=== PATIENT | male | born 1990 | race American Indian/Alaskan Native ===

== ENCOUNTER 2020-02-11 18:35 | Emergency (ER) | payer MEDICARE ==
--- NOTE | 2020-02-11 19:38 | Emergency Department Report ---
Blank Doc - Documentation Documentation: 29-year-old male that presents with for medical clearance. As per caregiver, patient has been very aggrasive and has missed 2 doses of clozapine. This initial assessment/diagnostic orders/clinical plan/treatment(s) is/are subject to change based on patient's health status, clinical progression and re- assessment by fellow clinical providers in the ED. Further treatment and workup at subsequent clinical providers discretion. Patient/guardians urged not to elope from the ED as their condition may be serious if not clinically assessed and managed. Initial orders include: 1- Patient sent to [facility] for further evaluation and treatment 2- labs 3- UA
[2020-02-11 19:40] VITALS: BP 135/79
[2020-02-11 20:35] LABS: Basophils % (Auto) 0.3 % (0.0-1.8); Eosinophils # (Auto) 0.1 K/mm3 (0.0-0.4); Eosinophils % (Auto) 1.1 % (0.0-4.3); Hematocrit 44.5 % (35.5-45.6); Hemoglobin 15.6 gm/dl (11.8-15.2); Lymphocytes # (Auto) 2.4 K/mm3 (1.2-5.4); Mean Corpuscular HGB Conc 35 % (32-34); Mean Corpuscular Volume 87 fl (84-94); Monocytes # (Auto) 0.8 K/mm3 (0.0-0.8); Monocytes % (Auto) 12.8 % (0.0-7.3); Platelet Count 196 K/mm3 (140-440); Red Blood Count 5.14 M/mm3 (3.65-5.03); Red Cell Distribution Width 13.4 % (13.2-15.2)
[2020-02-11 20:38] LABS: BUN/Creatinine Ratio 14; Blood Urea Nitrogen 17 mg/dL (9-20); Calcium 9.8 mg/dL (8.4-10.2); Hemolysis Index 10
[2020-02-11 20:51] LABS: Bacteria,Urine 1+ /HPF (Negative); Bilirubin,Urine NEG (Negative); Blood,Urine NEG (Negative); Color,Urine Yellow (Yellow); Mucus,Urine FEW /HPF; Protein,Urine <15 mg/dL mg/dL (Negative); Urobilinogen,Urine < 2.0 mg/dL (<2.0); WBC,Urine < 1.0 /HPF (0.0-6.0)
[2020-02-11 21:24] LABS: Amphetamine Screen,Urine PRESUMPTIVE NEGATIVE; Benzodiazepines Screen,Urine PRESUMPTIVE NEGATIVE; Cannabinoid Screen,Urine PRESUMPTIVE NEGATIVE; Cocaine Screen,Urine PRESUMPTIVE NEGATIVE; Methadone Screen,Urine PRESUMPTIVE NEGATIVE; Opiate Screen,Urine PRESUMPTIVE NEGATIVE
--- NOTE | 2020-02-11 21:51 | Emergency Department Report ---
ED Psych HPI - General Chief Complaint: Medical Clearance Stated Complaint: MH Time Seen by Provider: 02/11/20 19:35 Source: patient Mode of arrival: Ambulatory Limitations: No Limitations - History of Present Illness Initial Comments: Mr. Can has a history of bipolar disorder, anxiety who presents with request via caregiver for medication refill of clozapine 200 mg twice daily. Patient was unable to have routine lab draw, consequently his prescription refill had been delayed. Caregiver has arranged for medication to arrive within the next few days. Without clozapine, patient can be aggressive. He is currently calm without any thoughts of harming himself or others. He has been in a new snf since July. He denies any physical complaints. He has been without 2 days of clozapine dosing. He recently received his other medications. Caregiver explained that it is protocol for patient to be evaluated his medication regimen has been disrupted -: days(s) Associated Psychiatric Symptoms: other (Aggressive behavior) History of same: Yes Quality: intermittent Improves With: medication Worsens With: none Context: not taking psychiatric Associated Symptoms: denies other symptoms Treatments Prior to Arrival: none - Related Data Home Medications Medication Instructions Recorded Confirmed Last Taken cloZAPine 200 mg PO BID 02/11/20 02/11/20 Unknown Previous Rx's Medication Instructions Recorded Last Taken Type cloZAPine 200 mg PO BID 5 Days #10 tab 02/11/20 Unknown Rx Allergies Allergy/AdvReac Type Severity Reaction Status Date / Time haloperidol [From Haldol] AdvReac Unknown Verified 02/11/20 19:40 ED Review of Systems ROS: Stated complaint: MH Other details as noted in HPI Comment: All other systems reviewed and negative Constitutional: denies: fever, malaise Respiratory: denies: cough, shortness of breath Cardiovascular: denies: chest pain Gastrointestinal: denies: abdominal pain, nausea, vomiting Psychiatric: denies: auditory hallucinations, suicidal thoughts ED Past Medical Hx - Past Medical History Previous Medical History?: Yes Hx Psychiatric Treatment: Yes (Bi polar, anxiety) - Surgical History Past Surgical History?: No - Social History Smoking Status: Never Smoker Substance Use Type: None - Medications Home Medications: Home Medications Medication Instructions Recorded Confirmed Last Taken Type cloZAPine 200 mg PO BID 02/11/20 02/11/20 Unknown History cloZAPine 200 mg PO BID 5 Days #10 tab 02/11/20 Unknown Rx ED Physical Exam - General Limitations: No Limitations General appearance: alert, in no apparent distress, other (Calm cooperative) - Head Head exam: Present: atraumatic, normocephalic - Eye Eye exam: Present: normal appearance - ENT ENT exam: Present: mucous membranes moist - Neck Neck exam: Present: normal inspection, full ROM - Respiratory Respiratory exam: Present: normal lung sounds bilaterally. Absent: respiratory distress, wheezes, rales, rhonchi - Cardiovascular Cardiovascular Exam: Present: regular rate, normal rhythm, normal heart sounds. Absent: systolic murmur, diastolic murmur, rubs, gallop - GI/Abdominal GI/Abdominal exam: Present: soft, normal bowel sounds. Absent: distended, tenderness - Rectal Rectal exam: Present: deferred - Extremities Exam Extremities exam: Present: normal inspection - Back Exam Back exam: Present: normal inspection - Neurological Exam Neurological exam: Present: alert, oriented X3 - Psychiatric Psychiatric exam: Present: normal mood, flat affect - Skin Skin exam: Present: warm, dry, intact, normal color. Absent: rash ED Course Vital Signs 02/11/20 19:36 Temperature 99.1 F Pulse Rate 92 H Respiratory 18 Rate Blood Pressure 135/79 O2 Sat by Pulse 97 Oximetry ED Medical Decision Making - Lab Data Result diagrams: 02/11/20 19:47 02/11/20 19:47 Laboratory Results - last 24 hr 02/11/20 02/11/20 02/11/20 19:47 19:47 19:47 WBC 6.5 RBC 5.14 H Hgb 15.6 H Hct 44.5 MCV 87 MCH 30 MCHC 35 H RDW 13.4 Plt Count 196 Lymph % (Auto) 37.0 H Casey % (Auto) 12.8 H Eos % (Auto) 1.1 Baso % (Auto) 0.3 Lymph # 2.4 Casey # 0.8 Eos # 0.1 Baso # 0.0 Seg Neutrophils % 48.8 Seg Neutrophils # 3.2 Sodium 141 Potassium 4.2 Chloride 100.2 Carbon Dioxide 28 Anion Gap 17 BUN 17 Creatinine 1.2 Estimated GFR > 60 BUN/Creatinine Ratio 14 Glucose 87 Calcium 9.8 Urine Color Urine Turbidity Urine pH Ur Specific [place] Urine Protein Urine Glucose (UA) Urine Ketones Urine Blood Urine Nitrite Urine Bilirubin Urine Urobilinogen Ur Leukocyte Esterase Urine WBC (Auto) Urine RBC (Auto) Urine Bacteria (Auto) Urine Mucus Salicylates < 0.3 L Urine Opiates Screen Urine Methadone Screen Acetaminophen Ur Barbiturates Screen Ur Phencyclidine Scrn Ur Amphetamines Screen U Benzodiazepines Scrn Urine Cocaine Screen U Marijuana (THC) Screen Drugs of Abuse Note Plasma/Serum Alcohol 02/11/20 02/11/20 02/11/20 19:47 19:47 Unknown WBC RBC Hgb Hct MCV MCH MCHC RDW Plt Count Lymph % (Auto) Casey % (Auto) Eos % (Auto) Baso % (Auto) Lymph # Casey # Eos # Baso # Seg Neutrophils % Seg Neutrophils # Sodium Potassium Chloride Carbon Dioxide Anion Gap BUN Creatinine Estimated GFR BUN/Creatinine Ratio Glucose Calcium Urine Color Yellow Urine Turbidity Clear Urine pH 5.0 Ur Specific [place] 1.027 Urine Protein <15 mg/dl Urine Glucose (UA) Neg Urine Ketones Neg Urine Blood Neg Urine Nitrite Neg Urine Bilirubin Neg Urine Urobilinogen < 2.0 Ur Leukocyte Esterase Neg Urine WBC (Auto) < 1.0 Urine RBC (Auto) 2.0 Urine Bacteria (Auto) 1+ Urine Mucus Few Salicylates Urine Opiates Screen Urine Methadone Screen Acetaminophen 5.0 L Ur Barbiturates Screen Ur Phencyclidine Scrn Ur Amphetamines Screen U Benzodiazepines Scrn Urine Cocaine Screen U Marijuana (THC) Screen Drugs of Abuse Note Plasma/Serum Alcohol < 0.01 02/11/20 Unknown WBC RBC Hgb Hct MCV MCH MCHC RDW Plt Count Lymph % (Auto) Casey % (Auto) Eos % (Auto) Baso % (Auto) Lymph # Casey # Eos # Baso # Seg Neutrophils % Seg Neutrophils # Sodium Potassium Chloride Carbon Dioxide Anion Gap BUN Creatinine Estimated GFR BUN/Creatinine Ratio Glucose Calcium Urine Color Urine Turbidity Urine pH Ur Specific [place] Urine Protein Urine Glucose (UA) Urine Ketones Urine Blood Urine Nitrite Urine Bilirubin Urine Urobilinogen Ur Leukocyte Esterase Urine WBC (Auto) Urine RBC (Auto) Urine Bacteria (Auto) Urine Mucus Salicylates Urine Opiates Screen Presumptive negative Urine Methadone Screen Presumptive negative Acetaminophen Ur Barbiturates Screen Presumptive negative Ur Phencyclidine Scrn Presumptive negative Ur Amphetamines Screen Presumptive negative U Benzodiazepines Scrn Presumptive negative Urine Cocaine Screen Presumptive negative U Marijuana (THC) Screen Presumptive negative Drugs of Abuse Note Disclamer Plasma/Serum Alcohol - Medical Decision Making Mr. Can appears calm and cooperative. He is not aggressive here in the emergency department. I did prescribe 10 doses of clozapine for the next 5 days. CBC chemistry serum toxicology urinalysis urine tox screen all within normal limits Critical care attestation.: If time is entered above; I have spent that time in minutes in the direct care of this critically ill patient, excluding procedure time. ED Disposition Clinical Impression: Medication refill Disposition: DC-01 TO HOME OR SELFCARE Is pt being admited?: No Does the pt Need Aspirin: No Condition: Stable Prescriptions: cloZAPine 200 mg PO BID 5 Days #10 tab
== END 2020-02-11 22:10 | disposition home or self-care (01) ==
LOC: ED 18:35
DX: R45.6 Violent behavior (principal); Z76.0 Encounter for issue of repeat prescription; F31.9 Bipolar disorder, unspecified; F41.9 Anxiety disorder, unspecified; Z79.899 Other long term (current) drug therapy; Z88.8 Allergy status to other drugs, medicaments and biological substances
CPT/HCPCS: 36415; 80048; 80307; 80320; 81001; 85025; G0480

== ENCOUNTER 2020-04-22 17:02 | Emergency (ER) | payer MEDICARE ==
[2020-04-22 17:34] VITALS: BP 118/64
--- NOTE | 2020-04-22 17:36 | Emergency Department Report ---
ED General Adult HPI - General Chief complaint: Medical Clearance Stated complaint: RX REFILL Time Seen by Provider: 04/22/20 17:32 Source: family Mode of arrival: Ambulatory Limitations: No Limitations - History of Present Illness Initial comments: 29-year-old male patient presents with his caregiver for refill of his clonidine today. [facility] and his medications are typically shipped however he did not receive his clonidine. Caregiver states that his last dose of clonidine was yesterday. He denies any other complaints or concerns. - Related Data Home Medications Medication Instructions Recorded Confirmed Last Taken cloZAPine 200 mg PO BID 02/11/20 02/11/20 Unknown Previous Rx's Medication Instructions Recorded Last Taken Type cloZAPine 200 mg PO BID 5 Days #10 tab 02/11/20 Unknown Rx cloNIDine [Catapres] 0.1 mg PO QHS #30 tablet 04/22/20 Unknown Rx Allergies Allergy/AdvReac Type Severity Reaction Status Date / Time haloperidol [From Haldol] AdvReac Unknown Verified 02/11/20 19:40 ED Review of Systems ROS: Stated complaint: RX REFILL Other details as noted in HPI Constitutional: denies: fever, malaise Respiratory: denies: shortness of breath Cardiovascular: denies: chest pain Gastrointestinal: denies: abdominal pain ED Past Medical Hx - Past Medical History Previous Medical History?: Yes Hx Psychiatric Treatment: Yes (Bi polar, anxiety) - Social History Smoking Status: Never Smoker Substance Use Type: None - Medications Home Medications: Home Medications Medication Instructions Recorded Confirmed Last Taken Type cloZAPine 200 mg PO BID 02/11/20 02/11/20 Unknown History cloZAPine 200 mg PO BID 5 Days #10 tab 02/11/20 Unknown Rx cloNIDine [Catapres] 0.1 mg PO QHS #30 tablet 04/22/20 Unknown Rx ED Physical Exam - General Limitations: No Limitations General appearance: alert, in no apparent distress - Head Head exam: Present: atraumatic, normocephalic - Eye Eye exam: Absent: scleral icterus - Respiratory Respiratory exam: Absent: respiratory distress - Cardiovascular Cardiovascular Exam: Present: regular rate - Neurological Exam Neurological exam: Present: alert, oriented X3 - Psychiatric Psychiatric exam: Present: normal affect, normal mood - Skin Skin exam: Present: warm, dry, intact, normal color. Absent: rash, cyanosis, ecchymosis ED Medical Decision Making - Medical Decision Making 29-year-old male patient presents with his caregiver for refill of his clonidine today. Patient lives [facility] a [facility] and his medications are typically shipped however he did not receive his clonidine. Caregiver states that his last dose of clonidine was yesterday. He denies any other complaints or concerns. Medication refill given. Patient to follow-up with his primary care provider for further refills. His vitals are normal, he is well-appearing, he is stable for discharge home. Critical care attestation.: If time is entered above; I have spent that time in minutes in the direct care of this critically ill patient, excluding procedure time. ED Disposition Clinical Impression: Encounter for medication refill Disposition: DC-01 TO HOME OR SELFCARE Is pt being admited?: No Condition: Stable Prescriptions: cloNIDine [Catapres] 0.1 mg PO QHS #30 tablet Referrals: PRIMARY CARE, [Referring] - 3-5 Days
== END 2020-04-22 19:25 | disposition home or self-care (01) ==
LOC: ED 17:02
DX: F41.9 Anxiety disorder, unspecified (principal); F31.9 Bipolar disorder, unspecified; Z76.0 Encounter for issue of repeat prescription; Z79.899 Other long term (current) drug therapy; Z88.8 Allergy status to other drugs, medicaments and biological substances
CPT/HCPCS: 99282

== ENCOUNTER 2021-03-05 15:33 | Emergency (ER) | payer MEDICARE ==
--- NOTE | 2021-03-05 15:39 | Emergency Department Report ---
ED General Adult HPI - General Stated complaint: BEHAVIORAL DISORDER Time Seen by Provider: 03/05/21 15:39 - History of Present Illness Initial comments: Patient was sent in from the shelter because of a behavior disorder. This was not a psychiatric issue. Patient became agitated and angry. He was punching the wall. He states that somebody said something to him and he should have let go. He did not. He is not suicidal or homicidal. He states that he feels better now. He states that he is just hungry. He reported to EMS that he did not want to go back to the shelter. He was aware that that may not be possible today. At this time, he is not responding to extraneous stimuli. He is not hearing voices. He is not angry or agitated. - Related Data Home Medications Medication Instructions Recorded Confirmed Last Taken cloZAPine 200 mg PO BID 02/11/20 02/11/20 Unknown Previous Rx's Medication Instructions Recorded Last Taken Type cloZAPine 200 mg PO BID 5 Days #10 tab 02/11/20 Unknown Rx cloNIDine [Catapres] 0.1 mg PO QHS #30 tablet 04/22/20 Unknown Rx Allergies Allergy/AdvReac Type Severity Reaction Status Date / Time haloperidol [From Haldol] AdvReac Unknown Verified 02/11/20 19:40 ED Review of Systems ROS: Stated complaint: BEHAVIORAL DISORDER Other details as noted in HPI Comment: All other systems reviewed and negative Constitutional: denies: fever Eyes: denies: eye pain ENT: denies: throat pain Respiratory: denies: cough Cardiovascular: denies: chest pain Endocrine: denies: unexplained weight loss Gastrointestinal: denies: abdominal pain Genitourinary: denies: dysuria Musculoskeletal: denies: back pain Skin: denies: rash Neurological: denies: headache Psychiatric: denies: auditory hallucinations, visual hallucinations, homicidal thoughts, suicidal thoughts Hematological/Lymphatic: denies: easy bruising ED Past Medical Hx - Past Medical History Hx Psychiatric Treatment: Yes (Bi polar, anxiety) - Family History Family history: no significant - Social History Smoking Status: Never Smoker Substance Use Type: None - Medications Home Medications: Home Medications Medication Instructions Recorded Confirmed Last Taken Type cloZAPine 200 mg PO BID 02/11/20 02/11/20 Unknown History cloZAPine 200 mg PO BID 5 Days #10 tab 02/11/20 Unknown Rx cloNIDine [Catapres] 0.1 mg PO QHS #30 tablet 04/22/20 Unknown Rx ED Physical Exam - General Limitations: No Limitations, Other (Pulse ox is noted. Patient is not hypoxic.) General appearance: alert, in no apparent distress - Head Head exam: Present: atraumatic, normocephalic, normal inspection - Eye Eye exam: Present: normal appearance, EOMI. Absent: scleral icterus - ENT ENT exam: Present: normal exam, normal external ear exam - Neck Neck exam: Present: normal inspection. Absent: meningismus - Respiratory Respiratory exam: Present: normal lung sounds bilaterally. Absent: respiratory distress - Cardiovascular Cardiovascular Exam: Present: regular rate, normal rhythm - GI/Abdominal GI/Abdominal exam: Present: soft. Absent: tenderness - Extremities Exam Extremities exam: Present: normal capillary refill - Back Exam Back exam: Present: full ROM - Neurological Exam Neurological exam: Present: alert, oriented X3, normal gait. Absent: motor sensory deficit - Psychiatric Psychiatric exam: Present: normal affect, normal mood - Skin Skin exam: Present: warm, dry ED Course Vital Signs 03/05/21 03/05/21 03/05/21 17:10 19:47 19:53 Temperature 98.1 F 98.0 F Pulse Rate 94 H 97 H Respiratory 16 16 16 Rate Blood Pressure 112/75 Blood Pressure 111/71 [Left] O2 Sat by Pulse 98 100 98 Oximetry 03/06/21 02:39 Temperature 97.6 F Pulse Rate 101 H Respiratory 18 Rate Blood Pressure Blood Pressure 115/71 [Left] O2 Sat by Pulse 100 Oximetry - Reevaluation(s) Reevaluation #1: 03/05/21 15:39 Patient was seen upon EMS arrival. Old records reviewed. Reevaluation #2: 03/05/21 17:36 Despite the fact that the patient was medically cleared and discharged for a behavior issue, the shelter is refusing to take the patient back because he has not been seen by social worker delinquency prevention. They believe that this is a psychiatric issue and the patient requires a 3-day hospitalization. I have had conversat ions with the director and the staff member present. I have informed him that this is not a psychiatric issue, that this is a behavioral issue. They state that they will not take him back until he has been seen by the social worker delinquency prevention. This will be facilitated and the patient will subsequently be discharged. They refused to listen to my medical judgment about his psychiatric versus behavioral state. Reevaluation #3: 03/05/21 19:57 Labs have been reviewed. Patient is still medically cleared. We are awaiting psychiatric evaluation so the patient can be discharged. This is a behavioral issue, it is not a psychiatric issue. 03/06/21 22:20 care signed out to the next physician pending psychiatric evaluation. ED Medical Decision Making - Lab Data Result diagrams: 03/05/21 17:42 03/05/21 17:42 - Medical Decision Making Patient presented secondary to an outburst of anger. This is behavioral, that this is not psychiatric. Patient is not suicidal homicidal. He is not responding to extraneous stimuli. There is no evidence of delusion. He does not have any symptomatology suggestive of metabolic derangement. He is not altered at this time. There is no indication for medical work-up or psychiatric evaluation as this is a behavioral issue. He will be continued on his medications and return to the shelter. Critical Care Time: No Critical care attestation.: If time is entered above; I have spent that time in minutes in the direct care of this critically ill patient, excluding procedure time. ED Disposition Clinical Impression: Anger reaction Disposition: 06 HOME HEALTH CARE SERVICE Is pt being admited?: No Does the pt Need Aspirin: No Condition: Stable Additional Instructions: Usual medications at home. Follow-up with your regular doctor for recheck. Return for problems. Referrals: PRIMARY CARE, [Primary Care Provider] - 3-5 Days
[2021-03-05 17:58] LABS: Hemoglobin 14.5 gm/dl (11.8-15.2); Mean Corpuscular HGB Conc 33 % (32-34); Mean Corpuscular Volume 91 fl (84-94); Platelet Count 166 K/mm3 (140-440); Red Blood Count 4.85 M/mm3 (3.65-5.03); Red Cell Distribution Width 14.3 % (13.2-15.2)
[2021-03-05 18:17] LABS: Blood Urea Nitrogen 10 mg/dL (9-20); Calcium 9.2 mg/dL (8.4-10.2); Hemolysis Index 13
[2021-03-05 18:27] LABS: BUN/Creatinine Ratio 14
[2021-03-05 19:11] LABS: Amphetamine Screen,Urine Negative; Benzodiazepines Screen,Urine Negative; Cannabinoid Screen,Urine Negative; Cocaine Screen,Urine Negative; Methadone Screen,Urine Negative; Opiate Screen,Urine Negative
[2021-03-06 03:12] VITALS: BP 115/71
--- NOTE | 2021-03-06 09:56 | Consultation ---
History of Present Illness - Reason for Consult Consult date: 03/06/21 Reason for consult: mental health evaluation - History of Present Psychiatric Illness ED Note: Patient was sent in from the longterm because of a behavior disorder. This was not a psychiatric issue. Patient became agitated and angry. He was punching the wall. He states that somebody said something to him and he should have let go. He did not. He is not suicidal or homicidal. He states that he feels better now. He states that he is just hungry. He reported to EMS that he did not want to go back to the longterm. He was aware that that may not be possible today. At this time, he is not responding to extraneous stimuli. He is not hearing voices. He is not angry or agitated. Дмитрий Can is a 30 year old male with history of Autism, OCD who presents to the ED for mental health evaluation. In my interview with patient, he is calm. The patient reports that he punched holes on the wall at the longterm and they do not want him to return. The patient denies any current suicidal/homicidal ideation and denies hallucinations. Psych History Diagnoses: Autism, OCD Suicide attempts or Self-harm behavior:Denies Prior psychiatric hospitalizations: Yes Substance Abuse history: Denies Previous psychiatric medications tried: Seroquel, Wellbutrin Outpatient treatment: Denies PAST MEDICAL HISTORY: none reported Family Psychiatric History: None reported or documented SOCIAL HISTORY Marital Status: Single Living Arrangements: came from a longterm Employment Status:unemployed Access to guns/weapons: Denies Education: 11th grade History of Abuse:Denies Legal History: none reported REVIEW OF SYSTEMS Constitutional: Negative for weight loss ENT: Negative for stridor Respiratory: Negative for cough or hemoptysis All other systems reviewed and are negative MENTAL STATUS EXAMINATION General Appearance and Behavior: Age appropriate, good hygiene, wearing ap propriate clothes, sleeping, cooperative Cooperation: Participating but drowsy Psychomotor Behavior: unremarkable and within normal limits Mood: "ok" Affect and affective range: congruent with mood Thought Process:Goal directed Thought Content: Not suicidal Speech: Normal volume, Regular rate and rhythm, Suicidal Ideation:Denies Homicidal Ideation:Denies Hallucinations: Denies Delusions: None elicited Impulse Control: Unimpaired Insight and Judgment: Limited insight and poor judgment, Memory: Normal, Attention: Normal Orientation: Alert, oriented Assessment and Plan (1)Encounter for screening Examination for mental health and behavioral [id number] Continue previously prescribed medications The patient to comply with previously prescribed medications Risks, benefits and alternatives of medications discussed with the patient, questions answered and consent obtained from patient. PSYCHOTHERAPY: Supportive psychotherapy provided MEDICAL: Per primary team DELIRIUM PRECAUTIONS: Please re-orient patient frequently, keep lights on during the day, and minimize benzodiazepines and opiates as these medications could worsen patient's confusion. HOD CARRIER: Defer to primary Disposition: Do not recommend acute psychiatric inpatient treatment. Case management will follow up with patient for placement. Will sign off. Thank you for the consult. Please contact with any questions and/or concerns. Case staffed with Dr. Velazco Medications and Allergies Medications and Allergies Allergies Allergy/AdvReac Type Severity Reaction Status Date / Time haloperidol [From Haldol] AdvReac Unknown Verified 02/11/20 19:40 Home Medications Medication Instructions Recorded Confirmed Last Taken Type cloZAPine 200 mg PO BID 02/11/20 02/11/20 Unknown History cloZAPine 200 mg PO BID 5 Days #10 tab 02/11/20 Unknown Rx cloNIDine [Catapres] 0.1 mg PO QHS #30 tablet 04/22/20 Unknown Rx Mental Status Exam - Vital signs Last Vital Signs Temp 97.6 F 03/06/21 02:39 Pulse 101 H 03/06/21 02:39 Resp 18 03/06/21 02:39 BP 115/71 03/06/21 02:39 Pulse Ox 100 03/06/21 02:39 Results Result Diagrams: 03/05/21 17:42 03/05/21 17:42 Abnormal lab results 03/05/21 Range/Units 17:42 Carbon Dioxide 32 H (22-30) mmol/L Creatinine 0.7 L (0.8-1.3) mg/dL Glucose 130 H (75-100) mg/dL All other labs normal.
--- NOTE | 2021-03-06 10:30 | Event Note ---
Date: 03/06/21 The patient was evaluated in the emergency department for symptoms described in the history of present illness. He/she was evaluated in the context of the global COVID-19 pandemic, which necessitated consideration that the patient might be at risk for infection with the virus that causes COVID-19. Institutional protocols and algorithms that pertain to the evaluation of patients at risk for COVID-19 are in a state of rapid change based on information released by regulatory bodies including the CDC and federal and state organizations. These policies and algorithms were followed during the patient's care in the emergency department. Please note that these policies, procedures and recommendations changed on a rapid basis. ER documentation, psychiatric documentation, nursing documentation reviewed and appreciated. My evaluation, the patient is sitting down in chair, and in no acute distress. The patient was seen initially for what appears to be an anger/behavioral health issue. He was not found to have an emergent medical condition. It appears that his prison requested/demanded a behavioral health examination/case management evaluation. The psychiatric team have further recommended that this patient does not meet criteria for 1013 hold or involuntary hold. At this point in time, this patient does not appear to have a medical or psychiatric contraindication that would preclude him from being discharged back to his prison. Vital Signs 03/05/21 03/05/21 03/05/21 17:10 19:47 19:53 Temperature 98.1 F 98.0 F Pulse Rate 94 H 97 H Respiratory 16 16 16 Rate Blood Pressure 112/75 Blood Pressure 111/71 [Left] O2 Sat by Pulse 98 100 98 Oximetry 03/06/21 02:39 Temperature 97.6 F Pulse Rate 101 H Respiratory 18 Rate Blood Pressure Blood Pressure 115/71 [Left] O2 Sat by Pulse 100 Oximetry Lab Results 03/05/21 03/05/21 03/05/21 Range/Units 17:42 17:42 17:42 WBC 7.5 (4.5-11.0) K/mm3 RBC 4.85 (3.65-5.03) M/mm3 Hgb 14.5 (11.8-15.2) gm/dl Hct 44.0 (35.5-45.6) % MCV 91 (84-94) fl MCH 30 (28-32) pg MCHC 33 (32-34) % RDW 14.3 (13.2-15.2) % Plt Count 166 (140-440) K/mm3 Sodium 142 (137-145) mmol/L Potassium 4.2 (3.6-5.0) mmol/L Chloride 103.0 (98-107) mmol/L Carbon Dioxide 32 H (22-30) mmol/L Anion Gap 11 mmol/L BUN 10 (9-20) mg/dL Creatinine 0.7 L (0.8-1.3) mg/dL Estimated GFR > 60 ml/min BUN/Creatinine Ratio 14 % Glucose 130 H (75-100) mg/dL Calcium 9.2 (8.4-10.2) mg/dL Urine Opiates Screen Urine Methadone Screen Ur Barbiturates Screen Ur Phencyclidine Scrn Ur Amphetamines Screen U Benzodiazepines Scrn Urine Cocaine Screen U Marijuana (THC) Screen Drugs of Abuse Note Plasma/Serum Alcohol < 0.01 (0-0.07) % 03/05/21 Range/Units Unknown WBC (4.5-11.0) K/mm3 RBC (3.65-5.03) M/mm3 Hgb (11.8-15.2) gm/dl Hct (35.5-45.6) % MCV (84-94) fl MCH (28-32) pg MCHC (32-34) % RDW (13.2-15.2) % Plt Count (140-440) K/mm3 Sodium (137-145) mmol/L Potassium (3.6-5.0) mmol/L Chloride (98-107) mmol/L Carbon Dioxide (22-30) mmol/L Anion Gap mmol/L BUN (9-20) mg/dL Creatinine (0.8-1.3) mg/dL Estimated GFR ml/min BUN/Creatinine Ratio % Glucose (75-100) mg/dL Calcium (8.4-10.2) mg/dL Urine Opiates Screen Negative Urine Methadone Screen Negative Ur Barbiturates Screen Negative Ur Phencyclidine Scrn Negative Ur Amphetamines Screen Negative U Benzodiazepines Scrn Negative Urine Cocaine Screen Negative U Marijuana (THC) Screen Negative Drugs of Abuse Note Disclamer Plasma/Serum Alcohol (0-0.07) %
== END 2021-03-06 13:23 | disposition home health service (06) ==
LOC: ED 15:33
DX: R45.4 Irritability and anger (principal); F31.9 Bipolar disorder, unspecified; F41.8 Other specified anxiety disorders; Z88.8 Allergy status to other drugs, medicaments and biological substances
CPT/HCPCS: 36415; 80048; 80307; 80320; 85027; 99284; G0480

== ENCOUNTER 2021-06-14 18:46 | Emergency (ER) | payer MEDICARE ==
[2021-06-14] MEDS ORDERED: LIDOCAINE (2%) 20 MG/1 ML VIAL 20 ML MDV INFILTRATI ONE (21:01)
[2021-06-14] MEDS ORDERED: TETANUS,DIPH,PERTUSS(ACELL) VACCINE 0.5 ML SYRINGE IM ONE (21:03)
--- NOTE | 2021-06-14 21:28 | Emergency Department Report ---
ED General Adult HPI - General Chief complaint: Wound/Laceration Stated complaint: LACERATION L FOOT Time Seen by Provider: 06/14/21 21:01 Source: patient, police Mode of arrival: Ambulatory Limitations: No Limitations - History of Present Illness Initial comments: rt able lac after hittinga galss door -: hour(s) Location: lower extremity Severity scale (0 -10): 1 Quality: aching Worsens with: none - Related Data Home Medications Medication Instructions Recorded Confirmed Last Taken cloZAPine 200 mg PO BID 02/11/20 02/11/20 Unknown Previous Rx's Medication Instructions Recorded Last Taken Type cloZAPine 200 mg PO BID 5 Days #10 tab 02/11/20 Unknown Rx cloNIDine [Catapres] 0.1 mg PO QHS #30 tablet 04/22/20 Unknown Rx Allergies Allergy/AdvReac Type Severity Reaction Status Date / Time haloperidol [From Haldol] AdvReac Unknown Verified 02/11/20 19:40 ED Review of Systems ROS: Stated complaint: LACERATION L FOOT Other details as noted in HPI Constitutional: denies: chills, fever Eyes: denies: eye pain, eye discharge, vision change ENT: denies: ear pain, throat pain Respiratory: denies: cough, shortness of breath, wheezing Cardiovascular: denies: chest pain, palpitations Endocrine: no symptoms reported Gastrointestinal: denies: abdominal pain, nausea, diarrhea Genitourinary: denies: urgency, dysuria Musculoskeletal: denies: back pain, joint swelling, arthralgia Skin: denies: rash, lesions Neurological: denies: headache, weakness, paresthesias Psychiatric: denies: anxiety, depression Hematological/Lymphatic: denies: easy bleeding, easy bruising ED Past Medical Hx - Past Medical History Previous Medical History?: No Hx Psychiatric Treatment: Yes (Bi polar, anxiety) Additional medical history: gingivitis - Social History Smoking Status: Never Smoker Substance Use Type: None - Medications Home Medications: Home Medications Medication Instructions Recorded Confirmed Last Taken Type cloZAPine 200 mg PO BID 02/11/20 02/11/20 Unknown History cloZAPine 200 mg PO BID 5 Days #10 tab 02/11/20 Unknown Rx cloNIDine [Catapres] 0.1 mg PO QHS #30 tablet 04/22/20 Unknown Rx ED Physical Exam - General Limitations: No Limitations General appearance: alert, in no apparent distress - Head Head exam: Present: atraumatic, normocephalic - Eye Eye exam: Present: normal appearance - ENT ENT exam: Present: mucous membranes moist - Neck Neck exam: Present: normal inspection - Respiratory Respiratory exam: Present: normal lung sounds bilaterally. Absent: respiratory distress - Cardiovascular Cardiovascular Exam: Present: regular rate, normal rhythm. Absent: systolic mur mur, diastolic murmur, rubs, gallop - GI/Abdominal GI/Abdominal exam: Present: soft, normal bowel sounds - Rectal Rectal exam: Present: deferred - Extremities Exam Extremities exam: Present: normal inspection - Back Exam Back exam: Present: normal inspection - Neurological Exam Neurological exam: Present: alert, oriented X3 - Psychiatric Psychiatric exam: Present: normal affect, normal mood - Skin Skin exam: Present: warm, dry, intact, normal color. Absent: rash ED Course Vital Signs 06/14/21 20:31 Temperature 98.3 F Pulse Rate 108 H Respiratory 16 Rate Blood Pressure 92/64 [Left] O2 Sat by Pulse 98 Oximetry - Laceration /Wound Repair Right Ankle Wound Location: lower extremity Wound Length (cm): 5 Wound's Depth, Shape: superficial Wound Explored: clean Irrigated w/ Saline (ccs): 2 Betadine Prep?: No Anesthesia: 1% Lidocaine Volume Anesthetic (ccs): 3 Wound Debrided: minimal Wound Repaired With: sutures Suture Size/Type: 5:0 Number of Sutures: 6 Layer Closure?: No Sterile Dressing Applied?: Yes Critical care attestation.: If time is entered above; I have spent that time in minutes in the direct care of this critically ill patient, excluding procedure time. ED Disposition Clinical Impression: Laceration of right ankle Disposition: 01 HOME / SELF CARE / HOMELESS Is pt being admited?: No Does the pt Need Aspirin: No Condition: Stable Instructions: Laceration Care, Adult Additional Instructions: return in 2 weeks for suture removal Referrals: PRIMARY CARE,MD [Primary Care Provider] - 3-5 Days
[2021-06-14 22:24] VITALS: BP 121/78
== END 2021-06-14 22:15 | disposition home or self-care (01) ==
LOC: ED 18:46
DX: S91.011A Laceration without foreign body, right ankle, initial encounter (principal); Z88.8 Allergy status to other drugs, medicaments and biological substances; X58.XXXA Exposure to other specified factors, initial encounter; Y93.89 Activity, other specified; Y92.89 Other specified places as the place of occurrence of the external cause; Y99.8 Other external cause status
CPT/HCPCS: 12002; 90471; 90715; 99283; J3490